=== PATIENT | female | born 1965 | race Native Hawaiian/Other Pacific Islander ===

== ENCOUNTER 2018-02-03 15:22 | Emergency (ER) | payer SELFPAY ==
--- NOTE | 2018-02-04 00:29 | Emergency Department Report ---
ED Anxiety HPI - General Chief Complaint: Anxiety Stated Complaint: PANIC ATTACK Time Seen by Provider: 02/04/18 00:24 Source: patient Mode of arrival: Ambulatory - History of Present Illness Initial Comments: 52-year-old female comes to the emergency room reporting that she's been dealing with panic attacks for the last 2 weeks. Patient reports that she has been waking up early every morning about 1 AM with choking breathing fast heart pounding lip tremors and shaking. Patient reports that she has a history of anxiety that started about 2 years ago. Patient reports that she started having this after her daughter had . 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 Patient reports that she was on lorazepam and Zoloft but is unaware of the dosage. Patient reports she does not have a primary care provider she currently taking no medication she has an allergy to Tegretol causes angioedema. Patient denies any homicidal or suicidal ideation. MD Complaint: anxiety, heart racing, shortness of breath -: week(s) (2) Symptoms: dyspnea, chest pain, palpitations, other (shaken, lip tremor) Place: home Previous History of Same: Yes Severity: severe Quality: constant, similar to prior episodes Provoking factors: none known Improves With: medication Worsens With: thinking about event Associated symptoms: shortness of breath, palpitations, diaphoresis, other ( shaking, lip tremors) - Related Data Home Medications: Previous Rx's Medication Instructions Recorded Last Taken Type LORazepam [Ativan] 0.5 mg PO BID #12 tab 02/04/18 Unknown Rx Sertraline HCl [Zoloft] 50 mg PO QDAY #30 tablet 02/04/18 Unknown Rx Allergies/Adverse Reactions: Allergies Allergy/AdvReac Type Severity Reaction Status Date / Time carbamazepine [From Tegretol] Allergy Angioedema Verified 02/03/18 16:19 ED Review of Systems ROS: Stated complaint: PANIC ATTACK Other details as noted in HPI Constitutional: denies: chills, fever Eyes: denies: eye pain, eye discharge, vision change ENT: denies: ear pain, throat pain Respiratory: see HPI, shortness of breath Cardiovascular: as per HPI Psychiatric: anxiety, depression. denies: auditory hallucinations, visual hallucinations, homicidal thoughts, suicidal thoughts ED Past Medical Hx - Past Medical History Previous Medical History?: Yes Hx Psychiatric Treatment: Yes (anxiety) - Surgical History Past Surgical History?: No - Social History Smoking Status: Never Smoker - Medications Home Medications: Home Medications Medication Instructions Recorded Confirmed Last Taken Type LORazepam [Ativan] 0.5 mg PO BID #12 tab 02/04/18 Unknown Rx Sertraline HCl [Zoloft] 50 mg PO QDAY #30 tablet 02/04/18 Unknown Rx ED Physical Exam - General Limitations: No Limitations General appearance: alert, in no apparent distress, anxious - Head Head exam: Present: atraumatic, normocephalic - Eye Eye exam: Present: EOMI - ENT ENT exam: Present: mucous membranes moist - Neck Neck exam: Present: normal inspection, full ROM - Respiratory Respiratory exam: Present: normal lung sounds bilaterally. Absent: respiratory distress - Cardiovascular Cardiovascular Exam: Present: regular rate, normal rhythm. Absent: systolic murmur, diastolic murmur, rubs, gallop - Extremities Exam Extremities exam: Present: full ROM. Absent: tenderness - Back Exam Back exam: Present: normal inspection, full ROM. Absent: tenderness - Expanded Neurological Exam Expanded Cranial nerves: EOM's Intact: Normal, Gag Reflex: Normal, Tongue Deviation: Normal, Nystagmus: Normal, Facial Sensation: Normal, Facial Palsy with Forehead Movement: Normal, Facial Palsy without Forehead Movement: Normal Cerebellar function: Finger to Nose: Normal, Heel to Castro: Normal, Romberg: Normal Upper motor neuron: Tonny Neglect: Normal, Pronator Drift: Normal Sensory exam: Upper Extremity Light Touch: Normal, Lower Extremity Light Touch: Normal Motor strength exam: RUE: 5, LUE: 5, RLE: 5, LLE: 5 Best Eye Response (Daggett): (4) open spontaneously Best Motor Response (Daggett): (6) obeys commands Best Verbal Response (Vik): (5) oriented Daggett Total: 15 - Psychiatric Psychiatric exam: Present: normal affect, depressed - Skin Skin exam: Present: warm, dry, intact, normal color. Absent: rash ED Course Vital Signs 02/03/18 16:14 Temperature 99.1 F Pulse Rate 62 Respiratory 16 Rate Blood Pressure 147/88 O2 Sat by Pulse 99 Oximetry ED Medical Decision Making - Medical Decision Making Patient has been evaluated by this provider in fast track. Discussed patient will place her on a prescription for small dose and quantity of lorazepam and Zoloft 50 mg I will refer patient to [facility] as well as mental health clinics. Patient verbalizes understanding. I checked a BMP aware for Amelia and there is no patient's name or prescriptions for that. Critical care attestation.: If time is entered above; I have spent that time in minutes in the direct care of this critically ill patient, excluding procedure time. ED Disposition Clinical Impression: Anxiety and depression Disposition: DC-01 TO HOME OR SELFCARE Is pt being admited?: No Does the pt Need Aspirin: No Condition: Stable Instructions: Anxiety (ED), Depression (ED) Additional Instructions: Please take medication as prescribed. Please do not operate heavy machinery while taking the lorazepam. It is very important for you to follow-up with mental health health issues. Prescriptions: LORazepam [Ativan] 0.5 mg PO BID #12 tab Sertraline HCl [Zoloft] 50 mg PO QDAY #30 tablet Referrals: PRIMARY CARE, [Primary Care Provider] - 3-5 Days [facility] [Outside] - 3-5 Days [facility] [Outside] - 3-5 Days [facility] [Provider Group] - 3-5 Days Forms: Work/School Release Form(ED)
[2018-02-04 00:55] VITALS: BP 140/84
== END 2018-02-04 00:59 | disposition home or self-care (01) ==
LOC: ED 15:22
DX: F41.9 Anxiety disorder, unspecified (principal); F32.9 Major depressive disorder, single episode, unspecified; Z88.4 Allergy status to anesthetic agent
CPT/HCPCS: 99282